=== PATIENT | male | born 1980 | race African-American/Black ===

== ENCOUNTER 2019-04-10 11:04 | Emergency (ER) | payer OTHER, SELFPAY ==
[~2019-04-10] VITALS: Ht 177.8 cm; Wt 75.7 kg
[~2019-04-10 11:04] MED LIST: IBUPROFEN800 M1 PO; VALIUM10 MG ORAL
[2019-04-10 11:18] VITALS: BP 129/94
--- NOTE | 2019-04-10 11:25 | NUR ---
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 pain is on the back, right below the shoulder blades. patient reports the pain got worse last night after lifting boxes yesterday. patient denies any other injury. patient is alert awake x4 ambulatory breathing unlabored and even, speaking in full sentences.
[2019-04-10] MEDS ORDERED: Ketorolac 30mg Inj IM ONE (12:15)
--- NOTE | 2019-04-10 12:39 | Emergency Room Report ---
History of Present Illness General Chief Complaint: Back Injury Source: Patient Present Illness HPI 38-year-old male with no significant past medical history here complaining of pain in the left upper back over his scapula x3 days. Patient reports that he lifts heavy boxes at work and the pain started after lifting heavy boxes few days ago. Patient denies any direct fall or injuries to the affected area. Reports that he has had this pain in the same exact spot in the past and been told it is a pulled muscle. Patient has not taken any medication for pain rating the pain 7 out of 10 without radiation. Denying tingling and numbness. Denies any low back pain, saddle paresthesia, urinary or bowel incontinence. Allergies: Coded Allergies: No Known Allergies (Unverified , 06/25/14) Patient History Past Medical History: see triage record Past Surgical History: unable to obtain Pertinent Family History: none Immunizations: UTD Reviewed Nursing Documentation: PMH: Agreed; PSxH: Agreed Nursing Documentation-PMH Past Medical History: No Stated History Review of Systems All Other Systems: negative except mentioned in HPI Physical Exam Vital Signs Date Time Temp Pulse Resp B/P (MAP) Pulse Ox O2 Delivery O2 Flow Rate FiO2 04/10/19 11:18 97.9 99 20 129/94 (106) 97 Room Air Sp02 EP Interpretation: reviewed, normal General Appearance: no apparent distress, alert, GCS 15, non-toxic Head: normocephalic, atraumatic Eyes: bilateral eye normal inspection, bilateral eye PERRL ENT: hearing grossly normal, normal pharynx, no angioedema, normal voice Neck: full range of motion, supple/symm/no masses Respiratory: chest non-tender, lungs clear, normal breath sounds, no rhonchi, no wheezing, speaking full sentences Cardiovascular #1: regular rate, rhythm, no edema, no murmur, normal capillary refill Cardiovascular #2: 2+ radial (R), 2+ radial (L), 2+ dorsalis pedis (R), 2+ dorsalis pedis (L) Gastrointestinal: normal bowel sounds, non tender, soft, non-distended, no guarding, no rebound Genitourinary: normal inspection, no CVA tenderness Musculoskeletal: back normal, digits/nails normal, gait/station normal, normal range of motion, non-tender, no calf tenderness, pelvis stable, other - no impingement sign Neurologic: alert, oriented x3, responsive, motor strength/tone normal, sensory intact, speech normal Psychiatric: judgement/insight normal, memory normal, mood/affect normal, no suicidal/homicidal ideation Skin: no rash Lymphatic: no adenopathy Medical Decision Making PA Attestation All diagnoses and treatment plans were reviewed and discussed with my supervising physician Dr. Duarte Diagnostic Impression: Primary Impression: Thoracic back sprain ER Course 38-year-old male with no significant past medical history here complaining of pain in the left upper back over his scapula x3 days. Patient reports that he lifts heavy boxes at work and the pain started after lifting heavy boxes few days ago. Patient denies any direct fall or injuries to the affected area. Reports that he has had this pain in the same exact spot in the past and been told it is a pulled muscle. Patient has not taken any medication for pain rating the pain 7 out of 10 without radiation. Denying tingling and numbness. Denies any low back pain, saddle paresthesia, urinary or bowel incontinence. Ddx considered but are not limited to : thoracic spine fracture, thoracic spine strain, throacic spine sprain, radiculopathy. Vital signs: are WNL, pt. is afebrile H&PE are most consistent with: thoracic sprain , scapular strain ORDERS:scapular Xray , ibuprofen, robaxin ED INTERVENTIONS: toradol DISCHARGE: At this time pt. is stable for d/c to home. Will provide printed patient care instructions, and any necessary prescriptions. Care plan and follow up instructions have been discussed with the patient prior to discharge. Take medication as directed follow-up with a primary care provider worsening symptoms return to the emergency room Other X-Ray Diagnostic Results Other X-Ray Diagnostic Results : X-Ray ordered: Scapula left # of Views/Limited Vs Complete: 3 View Indication: Pain EP Interpretation: Yes PA Xray: Interpretation reviewed, by supervising MD Interpretation: no dislocation, no soft tissue swelling, no fractures Impression: No acute disease Electronically Signed by: Escobar Kimbrough PA-C Last Vital Signs Date Time Temp Pulse Resp B/P (MAP) Pulse Ox O2 Delivery O2 Flow Rate FiO2 04/10/19 11:18 97.9 98 20 129/94 97 Room Air Disposition: HOME, SELF-CARE Condition: Stable Scripts Methocarbamol* (ROBAXIN-500*) 500 Mg Tablet 500 MG ORAL TID PRN for For Pain, #15 TAB 0 Refills Prov: Escobar Turner 04/10/19 Ibuprofen (Ibu) 800 Mg Tablet 800 MG PO TID, #30 TAB Prov: Escobar Turner 04/10/19 Patient Instructions: Thoracic Strain, [id number] Additional Instructions: Follow-up with your primary care provider for physical therapy avoid strenuous physical activity take medication as directed and if worsening symptoms return to the emergency room Escobar Turner Apr 10, 2019 12:39
[2019-04-10] MEDS ORDERED: IBU800 MG PO (12:40)
[2019-04-10] MEDS ORDERED: ROBAXIN-500MG ORAL (12:40)
[2019-04-10 12:48] VITALS: BP 129/94
--- NOTE | 2019-04-10 12:48 | NUR ---
ER DISCHARGE NOTE: Patient is cleared to be discharged per DANIELLA WESTON, pt is aox4, on room air, with stable vital signs. pt was given dc and prescription instructions, pt was able to verbalize understanding, pt id band removed without complications. pt is able to ambulate with steady gait. pt took all belongings.
--- NOTE | 2019-04-11 12:34 | Diagnostic Imaging Report ---
Indication: Pain from work injury one year ago Technique: 2 views of the left scapula Comparison: none Findings: No acute fractures. No dislocations Impression: Negative
== END 2019-04-10 15:00 | disposition home or self-care (01) ==
LOC: EMR 14:35
DX: S23.3XXA Sprain of ligaments of thoracic spine, initial encounter (principal); X50.9XXA Other and unspecified overexertion or strenuous movements or postures, initial encounter; Y92.9 Unspecified place or not applicable; Y99.0 Civilian activity done for income or pay
CPT/HCPCS: 73010; 96372; 99283; J1885